=== PATIENT | female | born 1980 | race Caucasian/White ===

== ENCOUNTER → 2017-02-26 | Outpatient (CLI) | payer BC ==
--- NOTE | 2017-02-26 13:42 | EKG REPORT ---
SEVERITY:- OTHERWISE NORMAL ECG - SINUS RHYTHM LEFT AXIS DEVIATION : Confirmed by: Alexei Cordoba MD 26-Feb-2017 13:40:37
== END ==
LOC: OD 08:34
PROVIDERS: ATTEND Nurse Practitioner Family
DX: R40.4 Transient alteration of awareness (principal)
CPT/HCPCS: 93005; 93010